=== PATIENT | female | born 1970 | race African-American/Black ===

== ENCOUNTER 2016-10-05 16:48 | Emergency (ER) | payer SELFPAY ==
[~2016-10-05 16:48] MED LIST: AMLO5TAB2 PO; ASPI325T11 PO; ATOR10TA60 PO; AZIT250T PO; CLOP75TA PO; LISI-334 PO; METO100T11 PO; VALS80TA3 PO
[2016-10-05 17:16] LABS: BASO % 1 % (0-3); EOS % 4 % (0-3); HEMATOCRIT 34.2 % (36.0-47.0); HEMOGLOBIN 10.9 g/dL (12.0-15.5); LYMPH # 2.2 x10^3/uL (1.0-4.8); LYMPH % 39 % (24-48); MEAN CORPUSCULAR HEMOGLOBIN 22 pg (25-35); MEAN CORPUSCULAR HGB CONC 32 g/dL (31-37); MEAN CORPUSCULAR VOLUME 68 fL (79-100); MONO % 11 % (0-9); NEUT % 46 % (31-73); PLATELET COUNT 249 x10^3/uL (140-400); RED BLOOD COUNT 5.01 x10^6/uL (3.50-5.40); RED CELL DISTRIBUTION WIDTH 18.8 % (11.5-14.5); WHITE BLOOD COUNT 5.6 x10^3/uL (4.0-11.0)
[2016-10-05 17:24] LABS: INR 1.3 (0.8-1.1)
--- NOTE | 2016-10-05 17:26 | RAD ---
CT of the head without contrast, 10/05/2016: History: Slurred speech Comparison is made to a study from 07/02/2013. The ventricles are within normal limits in size. There is no shift of the midline structures. There is no evidence of acute intracranial hemorrhage or mass effect. IMPRESSION: No acute intracranial abnormality is detected. Note: The findings were called to personnel in the [facility] ER at 5:15 PM on 10/05/2016. PQRS Compliance Statement: One or more of the following individualized dose reduction techniques were utilized for this examination: 1. Automated exposure control 2. Adjustment of the mA and/or kV according to patient size 3. Use of iterative reconstruction technique
[2016-10-05 17:31] LABS: PLT ESTIMATE ADEQUATE (ADEQUATE)
[2016-10-05 17:34] LABS: ANISOCYTOSIS SLIGHT; HYPOCHROMIA MOD; MICROCYTOSIS MOD
[2016-10-05 17:35] LABS: CALCIUM 8.7 mg/dL (8.5-10.1); GFR 72.9; POTASSIUM 4.2 mmol/L (3.5-5.1); TARGET CELLS FEW
[2016-10-05 17:39] LABS: OVALOCYTES FEW; POIKILOCYTOSIS MOD; SCHISTOCYTES FEW
[2016-10-05 17:41] LABS: ALBUMIN 2.8 g/dL (3.4-5.0); ALBUMIN/GLOBULIN RATIO 0.5 (1.0-1.7); MAGNESIUM 1.7 mg/dL (1.8-2.4); TOTAL BILIRUBIN 0.9 mg/dL (0.2-1.0)
[2016-10-05] MEDS ORDERED: IV NORMAL SALINE 50ML 50 ML IV ONE (19:00)
[2016-10-05] MEDS ORDERED: NICARDIPINE HCL 50 MG in IV NORMAL SALINE 250ML 250 ML IV PRN (19:00)
[2016-10-05] MEDS ORDERED: LABETALOL 20 MG/4 ML DISP.SYRIN. IV PRN (19:00)
[2016-10-05] MEDS ORDERED: ALTEPLASE IV SCH (19:00)
[2016-10-05] MEDS ORDERED: IOHEXOL 350 MG/ML 100 ML VIAL. IV ONE (19:15)
[2016-10-05] MEDS ORDERED: LABETALOL 20 MG/4 ML DISP.SYRIN. IVP ONE ×2 (19:15→19:30)
[2016-10-05] MEDS ORDERED: ALTEPLASE 6 MG IV ONE (19:30)
[2016-10-05] MEDS ORDERED: CONTRAST GIVEN MC PRN (19:30)
[2016-10-05] MEDS ORDERED: ONDANSETRON PF 4 MG/2 ML VIAL. ONE (19:38)
[2016-10-05] MEDS ORDERED: IV NORMAL SALINE 1000ML BAG 1,000 ML IV SCH (19:51)
--- NOTE | 2016-10-05 19:51 | PHYS DOC ---
Past Medical History Past Medical History: High Cholesterol, Hypertension, MO Past Surgical History: , Tubal ligation, Other Additional Past Surgical Histo: CARDIAC STENT IN AUGUST 2015 Alcohol Use: Occasionally Drug Use: Marijuana Adult General Chief Complaint Chief Complaint: NEURO SYMPTOMS/DEFICITS HPI HPI Patient is a 46 year old female who presents with neuro symptoms. Patient was at home with her drinking a glass of water when she had a short period of shaking and fell to the floor. On arrival to ED patient has facial droop, incoherent speech, R side weakness. No prior h/o seizure or CVA. Patient unable to contribute to history. Review of Systems Review of Systems Unable to obtain ROS due to acuity of condition Current Medications Current Medications Current Medications Medications (Trade) Dose Ordered Sig/Shona Start Time Stop Time Status Last Admin Dose Admin Alteplase, Recombinant 0 ml @ 0 mls/hr Q1H 10/05/16 19:00 10/05/16 19:06 DC 10/05/16 19:51 53 MLS/HR Info (Do NOT chart on this entry -- for MONITORING) 1 each PRN DAILY PRN 10/05/16 19:30 10/05/16 21:16 DC Iohexol (Omnipaque 350 Mg/ml) 100 ml 1X ONCE 10/05/16 19:15 10/05/16 19:25 DC 10/05/16 19:15 100 ML Labetalol HCl (Normodyne) 10 mg 1X ONCE 10/05/16 19:30 10/05/16 19:31 DC Labetalol HCl 10 mg 10 mg PRN Q10MIN PRN 10/05/16 19:00 10/05/16 21:16 DC 10/05/16 19:24 10 MG Nicardipine HCl/ Sodium Chloride (Cardene/Iv Sodium Chloride 0.9% 250ml) 270 ml @ 27 mls/hr CONT PRN PRN 10/05/16 19:00 10/05/16 21:16 DC 10/05/16 19:34 27 MLS/HR Ondansetron HCl (Zofran) 4 mg STK-MED ONCE 10/05/16 19:38 10/05/16 19:39 DC Sodium Chloride (Iv Sodium Chloride 0.9% 50ml) 50 ml @ 0 mls/hr 1X ONCE 10/05/16 19:00 10/05/16 19:06 DC 10/05/16 20:28 0 MLS/HR Allergies Allergies Allergies Coded Allergies Type Severity Reaction Last Updated Verified No Known Drug Allergies 07/02/13 No Physical Exam Physical Exam Constitutional: Well developed, well nourished HENT: Normocephalic, atraumatic, bilateral external ears normal Eyes: PERRL, unable to look to R side, conjunctiva normal, no discharge Neck: Normal range of motion, no stridor, no stepoff noted Cardiovascular: Heart rate normal, regular rhythm, no murmur Lungs & Thorax: Bilateral breath sounds clear to auscultation Abdomen: Bowel sounds normal, soft, non-distended, no TTP Skin: Warm, no erythema, no rash Extremities: No obvious deformity, no edema Neurologic: Initially slightly confused but then quickly became alert, R facial droop, incoherent sounds when speaking, marked RUE and RLE weakness compared to LUE and LLE, difficulty following commands Current Patient Data Vital Signs Vital Signs Date Time Temp Pulse Resp B/P Pulse Ox O2 Delivery O2 Flow Rate FiO2 10/05/16 19:45 66 27 152/99 89 Nasal Cannula 2 10/05/16 16:48 98.6 98.6 Lab Values Laboratory Tests Test 10/05/16 17:00 10/05/16 17:01 White Blood Count 5.6x10^3/uL (4.0-11.0) Red Blood Count 5.01x10^6/uL (3.50-5.40) Hemoglobin 10.9g/dL (12.0-15.5) L Hematocrit 34.2% (36.0-47.0) L Mean Corpuscular Volume 68fL (79-100) L Mean Corpuscular Hemoglobin 22pg (25-35) L Mean Corpuscular Hemoglobin Concent 32g/dL (31-37) Red Cell Distribution Width 18.8% (11.5-14.5) H Platelet Count 249x10^3/uL (140-400) Neutrophils (%) (Auto) 46% (31-73) Lymphocytes (%) (Auto) 39% (24-48) Monocytes (%) (Auto) 11% (0-9) H Eosinophils (%) (Auto) 4% (0-3) H Basophils (%) (Auto) 1% (0-3) Neutrophils # (Auto) 2.6x10^3uL (1.8-7.7) Lymphocytes # (Auto) 2.2x10^3/uL (1.0-4.8) Monocytes # (Auto) 0.6x10^3/uL (0.0-1.1) Eosinophils # (Auto) 0.2x10^3/uL (0.0-0.7) Basophils # (Auto) 0.0x10^3/uL (0.0-0.2) Platelet Estimate Adequate (ADEQUATE) Hypochromasia Mod Poikilocytosis Mod Anisocytosis Slight Microcytosis Mod Target Cells Few Ovalocytes Few Schistocytes Few RBC Morphology Bizarre Forms Few Prothrombin Time 15.0SEC (11.7-14.0) H Prothrombin Time INR 1.3 (0.8-1.1) H PTT 29SEC (24-38) Sodium Level 140mmol/L (136-145) Potassium Level 4.2mmol/L (3.5-5.1) Chloride Level 105mmol/L (98-107) Carbon Dioxide Level 26mmol/L (21-32) Anion Gap 9 (6-14) Blood Urea Nitrogen 21mg/dL (7-20) H Creatinine 1.0mg/dL (0.6-1.0) Estimated GFR (Cockcroft-Gault) 72.9 BUN/Creatinine Ratio 21 (6-20) H Glucose Level 109mg/dL (70-99) H Lactic Acid Level 2.0mmol/L (0.4-2.0) Calcium Level 8.7mg/dL (8.5-10.1) Magnesium Level 1.7mg/dL (1.8-2.4) L Total Bilirubin 0.9mg/dL (0.2-1.0) Aspartate Amino Transferase (AST) 41U/L (15-37) H Alanine Aminotransferase (ALT) 36U/L (14-59) Alkaline Phosphatase 86U/L (46-116) Troponin I Quantitative < 0.017ng/mL (0.000-0.055) Total Protein 8.0g/dL (6.4-8.2) Albumin 2.8g/dL (3.4-5.0) L Albumin/Globulin Ratio 0.5 (1.0-1.7) L Ethyl Alcohol Level < 10mg/dL (0-10) Glucose (Fingerstick) 113mg/dL (70-99) H Laboratory Tests 10/05/16 17:00 Laboratory Tests 10/05/16 17:00 EKG EKG EKG (initial, my read): sinus rhythm, rate 77, P wave abnormality, QTc 534ms, nonspecific ST changes, TWI leads V5-6 EKG (second, my read): sinus rhythm, rate 70, P wave abnormality, QTc 485ms, morphology similar to prior Radiology/Procedures Radiology/Procedures CT head: IMPRESSION: No acute intracranial abnormality is detected. CXR (my read): Cardiomegaly, no acute abnormality CTA head/neck: IMPRESSION 1. Decreased flow within the distal left internal carotid artery from the skullbase through the supraclinoid segment with suspected absent flow within the left ICA terminus and no clear flow within the left middle cerebral artery branches. No clear dissection flap or thrombus is seen. However, evaluation of the left ICA at the level of the skullbase is limited. This may be better assessed with a catheter angiogram. 2. Absent flow within the left vertebral artery from its proximal segment to the level of C1-C2, likely due to proximal thrombus or dissection. There is reconstitution of this vessel distally, possibly due to retrograde flow. 3. Effacement of the left cerebral sulci and indistinct garcia-white matter differentiation pattern. This is not seen on the recent CT obtained on the same date, possibly artifactual. Given the aforementioned findings involving the left vertebral and internal carotid arteries, MRI is recommended if clinically feasible to assess for possible acute infarction. 4. Bilateral hilar and mediastinal lymphadenopathy. 5. Emphysema. Course & Med Decision Making Course & Med Decision Making Pertinent Labs and Imaging studies reviewed. (See chart for details) Patient is 46 year old female who presents with neuro symptoms. Activated as code stroke. Unclear if patient had true seizure at onset of symptoms. Emergent CT head obtained, no acute findings per radiologist. I spoke with Dr. Schwarz (consulting services manager neurologist); per his recommendation stat MRI/MRA brain ordered to assess for stroke vs seizure with Micky's paralysis. However, due to delay in getting MRI I spoke again with Dr. Schwarz re: tPA as I did not want to continue awaiting results of MRI. Ok to give tPA if family in agreement. I discussed the risks and benefits of tPA with patient's and daughter; they state that patient would want tPA in attempt to regain as much function as possible if indeed having a stroke. As I believe patient is having acute stroke, tPA ordered. CTA head/neck obtained immediately after tPA started; abnormal findings as above. I then immediately called stroke line and spoke with Dr. He, who has graciously accepted patient in transfer. [facility] called for emergent transfer. I update patient's family on plan, who are in agreement with transfer. Patient sent to via EMS. Note: Dose of unasyn ordered due to vomiting and possible aspiration. Dragon Disclaimer Dragon Disclaimer This electronic medical record was generated, in whole or in part, using a voice recognition dictation system. Departure Departure Impression: Primary Impression: Suspected stroke patient last known to be well more than 2 hours ago Additional Impression: Received intravenous tissue plasminogen activator (t-PA) in emergency department Disposition: 05 TRANSFER OTHER Condition: GUARDED Referrals: NO PCP (PCP) Problem Qualifiers TAM SUTTON MD Oct 05, 2016 19:51
[2016-10-05] MEDS ORDERED: ONDANSETRON PF 4 MG/2 ML VIAL. IV PRN (20:00)
[2016-10-05] MEDS ORDERED: ACETAMINOPHEN 325 MG TABLET. PO PRN (20:00)
[2016-10-05] MEDS ORDERED: MORPHINE SULFATE 2 MG/ML DISP.SYRIN. IV PRN (20:00)
--- NOTE | 2016-10-05 20:55 | RAD ---
PROCEDURE CT angiogram of the head and neck with intravenous contrast. HISTORY Code stroke. Right-sided weakness. Slurred speech. TECHNIQUE Computed tomographic images of the head and neck were obtained following the administration of 75 cc Omnipaque 350 intravenous contrast. Three-dimensional maximum intensity projection images were obtained. One or more of the following individualized dose reduction techniques were utilized for this examination: 1. Automated exposure control; 2. Adjustment of the mA and/or kV according to patient size; 3. Use of iterative reconstruction technique. COMPARISON Head CT performed on the same date. FINDINGS Head: There is no evidence of acute or subacute hemorrhage. There is slight effacement of the left cerebral sulci and there is an indistinct left garcia-white matter differentiation pattern. The right vertebral artery is dominant. There is decreased flow within the petrous and cavernous segments of the left internal carotid artery and absent flow within the left internal carotid artery at the ICA terminus. There is also absent flow within the left middle cerebral artery branches. The bilateral anterior cerebral arteries and anterior communicating artery are patent. The right middle cerebral artery and arterial branches are patent. The posterior cerebral arteries are patent. There is decreased right maxillary sinus size likely due to hypoplasia or the sequela of chronic sinusitis. There is a chronic right lamina papyracea fracture. The mastoid air cells are clear. No calvarial lesion is seen. Neck: There is a common origin of the innominate and left common carotid arteries, a normal variant. No hemodynamically significant stenosis is seen within the origins of the aortic arch great vessels. There is severe emphysema. There are enlarged mediastinal and hilar lymph nodes, partially included on the field of view. There is a suspected small right pleural effusion. There is a 9 mm focal opacity within the superior segment of the left lower lobe, likely due to atelectasis or scarring. The right common and internal and external carotid arteries and vertebral artery are widely patent throughout their entire extent. The left vertebral artery is opacified within its proximal aspect and is not opacified throughout its cervical segments. This vessel reconstitutes at the level of C1-C2. The left common carotid artery and external carotid arteries are widely patent. There is luminal irregularity within the distal left vertebral artery at the level of the skullbase with associated decreased flow. There are degenerative changes within the cervical spine. No severe stenosis is seen. IMPRESSION 1. Decreased flow within the distal left internal carotid artery from the skullbase through the supraclinoid segment with suspected absent flow within the left ICA terminus and no clear flow within the left middle cerebral artery branches. No clear dissection flap or thrombus is seen. However, evaluation of the left ICA at the level of the skullbase is limited. This may be better assessed with a catheter angiogram. 2. Absent flow within the left vertebral artery from its proximal segment to the level of C1-C2, likely due to proximal thrombus or dissection. There is reconstitution of this vessel distally, possibly due to retrograde flow. 3. Effacement of the left cerebral sulci and indistinct garcia-white matter differentiation pattern. This is not seen on the recent CT obtained on the same date, possibly artifactual. Given the aforementioned findings involving the left vertebral and internal carotid arteries, MRI is recommended if clinically feasible to assess for possible acute infarction. 4. Bilateral hilar and mediastinal lymphadenopathy. 5. Emphysema. Findings were discussed with Dr. Forde in the ED at 2050 hours on 10/05/2016. PQRS Statement: NASCET criteria were utilized for this exam. Electronically signed by: Carmenza Du (Oct 05, 2016 20:54:28)
[2016-10-05] MEDS ORDERED: AMPICILLIN/SULBACTAM 1.5 GM in IV NORMAL SALINE 50ML 50 ML IV ONE (21:00)
[2016-10-05 21:01] VITALS: BP 139/86
[2016-10-05] MEDS ORDERED: ONDANSETRON PF 4 MG/2 ML VIAL. IV ONE (21:45)
--- NOTE | 2016-10-06 06:09 | EKG ---
[facility] [address] [place] [address] Test Date: 2016-10-05 Test Time: 17:34:31 Pat Name: ESTELLE GODOY Department: Room: Gender: F Electrical Electronics Technician: : 1970 Requested By: TAM SUTTON Order Number: [id number] Reading MD: Kriss Blanc Measurements Intervals [place] Rate: 77 P: 61 MO: 134 QRS: -50 QRSD: 80 T: 106 QT: 470 QTc: 534 Interpretive Statements SINUS RHYTHM ABNORMAL LEFT AXIS DEVIATION QRS(T) CONTOUR ABNORMALITY CONSISTENT WITH ANTEROLATERAL INFARCT PROBABLY OLD CONSIDER INFERIOR INFARCT ABNORMAL ECG RI6.01 Compared to ECG 06/15/2016 22:24:34 No significant changes Electronically Signed On 10-07-2016 17:24:04 CDT by Kriss Blanc
--- NOTE | 2016-10-06 06:11 | EKG ---
[facility] [address] [place] [address] Test Date: 2016-10-05 Test Time: 19:36:33 Pat Name: ESTELLE GODOY Department: Room: Gender: F [employer]yer: : 1970 Requested By: TAM SUTTON Order Number: [id number] Reading MD: Kriss Blanc Measurements Intervals [place] Rate: 70 P: 134 [place]: 130 QRS: -116 QRSD: 80 T: 79 QT: 446 QTc: 485 Interpretive Statements SINUS RHYTHM LEFT ATRIAL ABNORMALITY ABNORMAL RIGHT SUPERIOR AXIS DEVIATION QRS(T) CONTOUR ABNORMALITY CONSISTENT WITH ANTEROLATERAL INFARCT AGE UNDETERMINED CONSISTENT WITH INFERIOR INFARCT PROBABLY OLD ABNORMAL ECG Electronically Signed On 10-07-2016 17:26:33 CDT by Kriss Blanc
--- NOTE | 2016-10-06 09:13 | RAD ---
AP portable chest radiograph 10/05/2016 Clinical History: Code stroke protocol. An AP portable erect digital radiograph of the chest was obtained. Comparison study is dated 06/15/2016. The cardiac silhouette is mild to moderately enlarged. The thoracic aorta is mildly tortuous. Prominence of the pulmonary vasculature is seen suggesting mild CHF. No area of consolidation is seen. No pneumothorax or pleural effusion is noted. The osseous structures are grossly intact. Impression: Findings suggestive of mild CHF.
== END 2016-10-05 21:16 | disposition other institution (70) ==
LOC: ER 16:48 → UNDOADMIN 19:49 → 1 WEST ICU 19:49 → ER 21:16
DX: R29.810 Facial weakness (principal); R41.0 Disorientation, unspecified; R53.1 Weakness; E78.00 Pure hypercholesterolemia, unspecified; I25.2 Old myocardial infarction; I10 Essential (primary) hypertension; F12.10 Cannabis abuse, uncomplicated; Z95.5 Presence of coronary angioplasty implant and graft
CPT/HCPCS: 36415; 37195; 51702; 70450; 70496; 70498; 71010; 80053; 82947; 83605; 83735; 84484; 85007; 85027; 85610; 85730; 93005; 96365; 96367; 96375; 99285; G0480; J0295; J2405; J2997; J3490; J7050; Q9967; J7030

== ENCOUNTER 2016-12-08 15:54 | Emergency (ER) | payer OTHER ==
[2016-12-08] MEDS ORDERED: fentaNYL PF VIAL 100 MCG/2 ML VIAL IV PRN (16:30)
--- NOTE | 2016-12-08 16:48 | ED.ADGEN ---
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 Patient is a v limited historian due to her speech difficulties, she is able to motion with her head yes and no to questions area patient has family member at bedside at bedside, but he has limited information , he is not her primary care provider, he states that the patient has all of her pills To in a weekly dispenser, and states that she has been receiving all pills as directed by her primary care provider, with no missed doses of medication. Patient has pill bottles with her in the ED, which are empty. He states that she follows at . He states the patient has been getting pain medication, but is complaining of pain in the right lower extremity over the past 2 days, increased swelling throughout the lower extremity. Patient denies any injuries, any fevers or chills, chest pain, shortness breath, nausea or vomiting, any new weakness, numbness, vision changes, headache or other complaints. Patient's has a bottle for oxycodone, per report she last received pain medication yesterday, although family reports the patient still has 2 pills a pain medication at home. It is unclear if the patient has an appointment to follow up with her primary care provider, or the name of her primary care provider at this time. Family is attempting to contact the patient' s sister who has additional information. Review of Systems Review of Systems Constitutional: Denies fever or chills. [] Eyes: Denies change in visual acuity. [] HENT: Denies nasal congestion or sore throat. [] Respiratory: Denies cough or shortness of breath. [] Cardiovascular: Denies chest pain or edema. [] GI: Denies abdominal pain, nausea, vomiting, bloody stools or diarrhea. [] : Denies dysuria. [] Musculoskeletal: Denies back pain, pain and swelling in the right lower extremity. Integument: Denies rash. [] Neurologic: Denies headache, focal weakness or sensory changes. [] Endocrine: Denies polyuria or polydipsia. [] Lymphatic: Denies swollen glands. [] Psychiatric: Denies depression or anxiety. [] Current Medications Current Medications Current Medications Medications (Trade) Dose Ordered Sig/Shona Start Time Stop Time Status Last Admin Dose Admin Fentanyl Citrate (Fentanyl 2ml Vial) 25 mcg PRN Q15MIN PRN 12/08/16 16:30 12/08/16 21:19 DC Oxycodone/ Acetaminophen (Percocet 5/325) 1 tab 1X ONCE 12/08/16 19:45 12/08/16 19:46 DC 12/08/16 19:35 1 TAB Allergies Allergies Allergies Coded Allergies Type Severity Reaction Last Updated Verified No Known Drug Allergies 07/02/13 No Physical Exam Physical Exam Constitutional: Well developed, well nourished, no acute distress, non-toxic appearance. [] HENT: Normocephalic, atraumatic, bilateral external ears normal, oropharynx moist, no oral exudates, nose normal. [] Eyes: PERRLA, EOMI, conjunctiva normal, no discharge. [] Neck: Normal range of motion, no tenderness, supple, no stridor. [] Cardiovascular:Heart rate regular rhythm, no murmur, S1, S2, no rubs or gallops. [] Lungs & Thorax: Bilateral breath sounds clear to auscultation, no wheezing, rhonchi, rales. No chest or crepitus or tenderness. [] Abdomen: Bowel sounds normal, soft, no tenderness, no rebound, rigidity, no guarding, no masses, no pulsatile masses. [] Skin: Warm, dry, no erythema, no rash. [] Back: No tenderness, no CVA tenderness. [] Extremities: Patient with contracture noted in the right upper extremity, and some muscle wasting in the right lower extremity with mild dependent edema, patient with tenderness to palpation throughout the calf, with trace pitting edema noted, no evidence of superficial injury, no bony point tenderness. Neurologic: Alert and oriented X 3, normal motor function, normal sensory function, no focal deficits noted. [] Psychologic: Affect normal, judgement normal, mood normal. [] Current Patient Data Vital Signs Vital Signs Date Time Temp Pulse Resp B/P (MAP) Pulse Ox O2 Delivery O2 Flow Rate FiO2 12/08/16 21:04 66 144/93 (110) 94 12/08/16 19:35 20 Room Air 12/08/16 16:15 98.0 98.0 Lab Values Laboratory Tests Test 12/08/16 16:22 12/08/16 17:05 12/08/16 17:29 12/08/16 18:45 Urine Test Negative (NEG) Urine Collection Type Unknown Urine Color Yellow Urine Clarity Clear Urine pH 6.5 Urine Specific [place] 1.025 Urine Protein Negative mg/dL (NEG-TRACE) Urine Glucose (UA) Negative mg/dL (NEG) Urine Ketones (Stick) Negative mg/dL (NEG) Urine Blood Negative (NEG) Urine Nitrite Negative (NEG) Urine Bilirubin Negative (NEG) Urine Urobilinogen Dipstick 1.0 mg/dL (0.2 mg/dL) Urine Leukocyte Esterase Trace (NEG) Urine RBC 3-5 /HPF (0-2) Urine WBC 11-20 /HPF (0-4) Urine Squamous Epithelial Cells Many /LPF Urine Bacteria Mod /HPF (0-FEW) Urine Mucus Marked /LPF White Blood Count 4.2 x10^3/uL (4.0-11.0) Red Blood Count 4.96 x10^6/uL (3.50-5.40) Hemoglobin 11.4 g/dL (12.0-15.5) L Hematocrit 36.3 % (36.0-47.0) Mean Corpuscular Volume 73 fL (79-100) L Mean Corpuscular Hemoglobin 23 pg (25-35) L Mean Corpuscular Hemoglobin Concent 31 g/dL (31-37) Red Cell Distribution Width 20.7 % (11.5-14.5) H Platelet Count 172 x10^3/uL (140-400) Neutrophils (%) (Auto) 50 % (31-73) Lymphocytes (%) (Auto) 33 % (24-48) Monocytes (%) (Auto) 8 % (0-9) Eosinophils (%) (Auto) 8 % (0-3) H Basophils (%) (Auto) 1 % (0-3) Neutrophils # (Auto) 2.1 x10^3uL (1.8-7.7) Lymphocytes # (Auto) 1.4 x10^3/uL (1.0-4.8) Monocytes # (Auto) 0.3 x10^3/uL (0.0-1.1) Eosinophils # (Auto) 0.3 x10^3/uL (0.0-0.7) Basophils # (Auto) 0.0 x10^3/uL (0.0-0.2) Platelet Estimate Adequate (ADEQUATE) Hypochromasia Mod Anisocytosis Mod Microcytosis Slight Ovalocytes Mod Schistocytes Few Sodium Level 139 mmol/L (136-145) Potassium Level 4.1 mmol/L (3.5-5.1) Chloride Level 104 mmol/L (98-107) Carbon Dioxide Level 29 mmol/L (21-32) Anion Gap 6 (6-14) Blood Urea Nitrogen 13 mg/dL (7-20) Creatinine 0.8 mg/dL (0.6-1.0) Estimated GFR (Cockcroft-Gault) 94.3 BUN/Creatinine Ratio 16 (6-20) Glucose Level 91 mg/dL (70-99) Calcium Level 9.0 mg/dL (8.5-10.1) Total Bilirubin 0.4 mg/dL (0.2-1.0) Aspartate Amino Transferase (AST) 35 U/L (15-37) Alanine Aminotransferase (ALT) 36 U/L (14-59) Alkaline Phosphatase 65 U/L (46-116) Troponin I Quantitative < 0.017 ng/mL (0.000-0.055) ZL-Ohh-V-Type Natriuretic Peptide 5827 pg/mL (0-124) H Total Protein 7.8 g/dL (6.4-8.2) Albumin 3.3 g/dL (3.4-5.0) L Albumin/Globulin Ratio 0.7 (1.0-1.7) L Prothrombin Time 29.2 SEC (11.7-14.0) H Prothrombin Time INR 3.0 (0.8-1.1) H PTT 47 SEC (24-38) H Laboratory Tests 12/08/16 17:29 Laboratory Tests 12/08/16 17:29 EKG EKG EC: Sinus rhythm, 78 bpm, left axis deviation, with left anterior fascicular block, left ventricular hypertrophy, contour abnormality noted in the lateral leads, QTc of 517, prolonged, HI 128, QRS of 80, abnormal ECG, when compared to ECG from 10/05/2016, some slight changes in morphology noted in the lateral leads, but no significant changes identified, does not meet STEMI criteria. As interpreted by me. Radiology/Procedures Radiology/Procedures [][facility] [address] [place] [address] IMAGING REPORT Signed PATIENT: ESTELLE GODOY ACCOUNT: [id number] : 1970 LOCATION: ER AGE: 46 SEX: F EXAM STATUS: REG ER ORD. PHYSICIAN: EMILI LANDREOS DO REASON: RLE swelling/pain/ brace s/p CVA PROCEDURE: VENOUS LOWER EXTREMITY RIGHT Right leg venous Doppler study: Clinical indications: Right leg swelling and pain. Findings: Duplex sonography (including garcia scale evaluation and color flow and waveform spectral analysis) of the proximal aspect of the greater saphenous vein and proximal aspect of the profunda femoral vein and the entire length of the common femoral and superficial femoral and popliteal veins and the tibioperoneal trunk and the proximal aspect of the posterior tibial and peroneal veins of the right leg was performed. Normal compressibility, augmentation of color Doppler flow after calf compression, and respiratory variation of Doppler flow is seen. Thus, there are no sonographic findings of deep venous thrombosis within these veins. Impression: There are no sonographic findings of deep venous thrombosis within the veins discussed above of the right lower extremity. Electronically signed by: Brooklyn Ruvalcaba MD (12/08/2016 4:51 PM) DICTATED and SIGNED BY: BROOKLYN RUVALCABA MD DATE: 12/08/16 1649 CC: EMILI LANDEROS DO; NO PCP ~ Course & Med Decision Making Course & Med Decision Making Pertinent Labs and Imaging studies reviewed. (See chart for details) After discussion with patient and family at bedside, I believe the patient may be experiencing pain consistent with the attempt to ambulate using brace with her residual CVA deficits. It appears the patient may been receiving less pain medication, just based on report that she is "running out of her medication", and the fact she is not received pain medication today. However, based on the patient's history, and location of discomfort and mild swelling, will obtain ultrasound of the right lower extremity to rule out DVT, will check basic laboratory studies to ensure no other abnormalities are identified. Patient's DVT study was unremarkable, laboratory studies not reveal any evidence acutely concerning findings, patient's INR was 3.0. Patient received IV pain medication , and oral pain medication in the ED. On reevaluation she states she is feeling better. Discussed with patient that she does not have evidence of acutely concerning findings in the emergency department, recommended following up with her primary care provider the next several days to discuss continued pain management, and the meantime patient will be discharged home with a prescription for short course of analgesia. Patient's mother was contacted, family did arrive in the emergency department, family and patient were given clear and detailed follow-up and return instructions, with which they voiced understanding and agreement. Patient discharged home in stable condition with plan as above. Dragon Disclaimer Dragon Disclaimer This electronic medical record was generated, in whole or in part, using a voice recognition dictation system. Departure Impression: Primary Impression: Leg pain, right Disposition: HOME, SELF-CARE Condition: IMPROVED Scripts Oxycodone/Apap 5-325 (PERCOCET 5-325 MG TABLET) 1 Each Tablet 1 TAB PO PRN Q6HRS Y for PAIN, #14 TAB 0 Refills Prov: EMILI LANDEROS DO 12/08/16 EMILI LANDEROS DO Dec 08, 2016 16:47
--- NOTE | 2016-12-08 16:54 | RAD ---
Right leg venous Doppler study: Clinical indications: Right leg swelling and pain. Findings: Duplex sonography (including garcia scale evaluation and color flow and waveform spectral analysis) of the proximal aspect of the greater saphenous vein and proximal aspect of the profunda femoral vein and the entire length of the common femoral and superficial femoral and popliteal veins and the tibioperoneal trunk and the proximal aspect of the posterior tibial and peroneal veins of the right leg was performed. Normal compressibility, augmentation of color Doppler flow after calf compression, and respiratory variation of Doppler flow is seen. Thus, there are no sonographic findings of deep venous thrombosis within these veins. Impression: There are no sonographic findings of deep venous thrombosis within the veins discussed above of the right lower extremity. Electronically signed by: Darin Ruvalcaba MD (12/08/2016 4:51 PM)
[2016-12-08 17:29] LABS: BILIRUBIN,URINE NEGATIVE (NEG); GLUCOSE,URINE NEGATIVE (NEG); NITRITE,URINE NEGATIVE (NEG); PH,URINE 6.5; PROTEIN,URINE NEGATIVE (NEG-TRACE)
[2016-12-08 17:39] LABS: BASO % 1 % (0-3); EOS % 8 % (0-3); HEMATOCRIT 36.3 % (36.0-47.0); HEMOGLOBIN 11.4 g/dL (12.0-15.5); LYMPH # 1.4 x10^3/uL (1.0-4.8); LYMPH % 33 % (24-48); MEAN CORPUSCULAR HEMOGLOBIN 23 pg (25-35); MEAN CORPUSCULAR HGB CONC 31 g/dL (31-37); MEAN CORPUSCULAR VOLUME 73 fL (79-100); MONO % 8 % (0-9); NEUT % 50 % (31-73); PLATELET COUNT 172 x10^3/uL (140-400); RED BLOOD COUNT 4.96 x10^6/uL (3.50-5.40); RED CELL DISTRIBUTION WIDTH 20.7 % (11.5-14.5); WHITE BLOOD COUNT 4.2 x10^3/uL (4.0-11.0)
[2016-12-08 17:41] LABS: NEG OBC UR NEG; POS OBC UR POS
[2016-12-08 17:45] LABS: BACTERIA,URINE MOD /HPF (0-FEW)
[2016-12-08 17:46] LABS: SQUAMOUS EPITHELIAL CELL,UR MANY /LPF
[2016-12-08 17:52] LABS: CREATININE 0.8 mg/dL (0.6-1.0); GFR 94.3; POTASSIUM 4.1 mmol/L (3.5-5.1)
[2016-12-08 17:58] LABS: ALBUMIN 3.3 g/dL (3.4-5.0); ALBUMIN/GLOBULIN RATIO 0.7 (1.0-1.7); TOTAL BILIRUBIN 0.4 mg/dL (0.2-1.0); TOTAL PROTEIN 7.8 g/dL (6.4-8.2)
[2016-12-08 18:35] LABS: ANISOCYTOSIS MOD; HYPOCHROMIA MOD; MICROCYTOSIS SLIGHT; OVALOCYTES MOD; PLT ESTIMATE ADEQUATE (ADEQUATE); SCHISTOCYTES FEW
[2016-12-08 19:10] LABS: PROTHROMBIN TIME PATIENT 29.2 SEC (11.7-14.0)
[2016-12-08] MEDS ORDERED: oxyCODONE/APAP 5/325 1 TAB TABLET PO ONE (19:45)
[2016-12-08] MEDS ORDERED: OXYC-323 PO (20:55)
[2016-12-08 21:04] VITALS: BP 144/93
--- NOTE | 2016-12-09 12:15 | EKG ---
[facility] [address] [place] [address] Test Date: 2016-12-08 Test Time: 16:50:39 Pat Name: ESTELLE GODOY Department: Room: Gender: F Doorkeeper: : 1970 Requested By: EMILI LANDEROS Order Number: [id number] Reading MD: Measurements Intervals [place] Rate: 78 P: 52 AK: 128 QRS: -42 QRSD: 80 T: 129 QT: 450 QTc: 517 Interpretive Statements SINUS RHYTHM LEFT ATRIAL ABNORMALITY ABNORMAL LEFT AXIS DEVIATION LEFT ANTERIOR FASCICULAR BLOCK CONSIDER LEFT VENTRICULAR HYPERTROPHY QRS(T) CONTOUR ABNORMALITY CONSISTENT WITH LATERAL INFARCT AGE UNDETERMINED CONSIDER INFERIOR INFARCT ABNORMAL ECG RI6.01 No previous ECG available for comparison
== END 2016-12-08 21:14 | disposition home or self-care (01) ==
LOC: ER 15:54
DX: M79.604 Pain in right leg (principal); R22.41 Localized swelling, mass and lump, right lower limb; E78.00 Pure hypercholesterolemia, unspecified; I10 Essential (primary) hypertension; I25.2 Old myocardial infarction; G81.91 Hemiplegia, unspecified affecting right dominant side; F12.10 Cannabis abuse, uncomplicated; Z86.73 Personal history of transient ischemic attack (TIA), and cerebral infarction without residual deficits; Z95.5 Presence of coronary angioplasty implant and graft
CPT/HCPCS: 36415; 80053; 81001; 81025; 83880; 84484; 85007; 85027; 85610; 85730; 93005; 93971; 99285-25

== ENCOUNTER 2017-01-09 14:35 | Emergency (ER) | payer OTHER ==
[~2017-01-09] VITALS: Ht 170.2 cm; Wt 66.2 kg
[~2017-01-09 14:35] MED LIST changes: +OXYC-323 PO
[2017-01-09 14:40] VITALS: BP 128/87
[2017-01-09] MEDS ORDERED: IBUPROFEN 400 MG TABLET. PO ONE (15:15)
[2017-01-09] MEDS ORDERED: HYDROcodone/APAP 5/325MG 1 TAB TABLET PO ONE (15:15)
--- NOTE | 2017-01-09 15:28 | RAD ---
Right ankle, 3 views, 01/09/2017: History: Ankle pain No fracture or or dislocation is identified. There is mild subcutaneous edema. IMPRESSION: No acute bony abnormality is detected.
[2017-01-09] MEDS ORDERED: ACET1TAB33 PO (15:56)
--- NOTE | 2017-01-09 15:56 | PHYS DOC ---
Past Medical History Past Medical History: CVA, High Cholesterol, Hypertension, [place], Stroke Past Surgical History: , Tubal ligation, Other Additional Past Surgical Histo: CARDIAC STENT IN AUGUST 2015 Alcohol Use: Occasionally Drug Use: None, Marijuana Adult General Chief Complaint Chief Complaint: LOWER EXT PAIN HPI HPI Patient is a 46 year old female in [facility], with complaints of chronic pain in the right upper extremity and right lower extremity and being out of her pain medications. In the room the patient only complaint is of right ankle pain. Patient is out of narcotic. Medication. No known trauma Review of Systems Review of Systems Constitutional: Denies fever or chills [] Respiratory: Denies cough or shortness of breath [] Cardiovascular: No chest pain GI: No abdominal pain Musculoskeletal: Right ankle pain Integument: Denies rash or skin lesions [] Neurologic: Right-sided weakness at baseline from previous stroke Current Medications Current Medications Current Medications Medications (Trade) Dose Ordered Sig/Shona Start Time Stop Time Status Last Admin Dose Admin Acetaminophen/ Hydrocodone Bitart (Lortab 5/325) 1 tab 1X ONCE 01/09/17 15:15 01/09/17 15:16 DC 01/09/17 15:34 1 TAB Ibuprofen (Motrin) 400 mg 1X ONCE 01/09/17 15:15 01/09/17 15:16 DC 01/09/17 15:34 400 MG Allergies Allergies Allergies Coded Allergies Type Severity Reaction Last Updated Verified No Known Drug Allergies 07/02/13 No Physical Exam Physical Exam Constitutional: Well developed, well nourished, no acute distress, non-toxic appearance. [] HENT: Normocephalic, atraumatic Eyes: EOMI, conjunctiva normal, no discharge. [] Neck: Normal range of motion, no tenderness, supple, no stridor. [] Cardiovascular:Heart rate regular rhythm, normal perfusion Lungs & Thorax: No tachypnea, clear breath sounds Abdomen: No distention Skin: Warm, dry, no erythema, no rash. [] Back: No tenderness, Extremities: No tenderness, no cyanosis, no clubbing, no signs of DVT or arterial insufficiency Neurologic: Alert , patient's speech at baseline per family, right-sided weakness at baseline. Psychologic: Cooperative Current Patient Data Vital Signs Vital Signs Date Time Temp Pulse Resp B/P (MAP) Pulse Ox O2 Delivery O2 Flow Rate FiO2 01/09/17 15:34 18 95 Room Air 01/09/17 14:40 98.4 96 128/87 (101) 98.4 EKG EKG [] Radiology/Procedures Radiology/Procedures Noted findings in x-ray no acute findings Course & Med Decision Making Course & Med Decision Making Pertinent Labs and Imaging studies reviewed. (See chart for details) [] Dragon Disclaimer Dragon Disclaimer This electronic medical record was generated, in whole or in part, using a voice recognition dictation system. Departure Departure Impression: Primary Impression: Chronic pain Additional Impression: Ankle pain Disposition: HOME, SELF-CARE Condition: STABLE Referrals: NO PCP (PCP) please follow up with your pcp or one of the clinics in the list provided to you. Please get your pain medication from your pcp. The ED does not treat chronic pain issues as those are best managed by your pcp. Patient Instructions: Chronic Pain, Chronic Pain Management-Brief Scripts Acetaminophen With Codeine (ACETAMINOPHEN-COD #3 TABLET) 1 Each Tablet 1 TAB PO PRN Q6HRS Y for PAIN for 2 Days, #8 TAB Prov: Tian AZUL MD 01/09/17 Problem Qualifiers Tian AZUL MD Jan 09, 2017 15:56
== END 2017-01-09 16:16 | disposition home or self-care (01) ==
LOC: ER 14:35
DX: G89.29 Other chronic pain (principal); M25.571 Pain in right ankle and joints of right foot; M79.641 Pain in right hand; E78.00 Pure hypercholesterolemia, unspecified; I10 Essential (primary) hypertension; F12.10 Cannabis abuse, uncomplicated; I25.2 Old myocardial infarction; Z86.73 Personal history of transient ischemic attack (TIA), and cerebral infarction without residual deficits; Z95.5 Presence of coronary angioplasty implant and graft
CPT/HCPCS: 73610; 99284